=== PATIENT | male | born 1990 | race Caucasian/White ===

== ENCOUNTER 2020-07-16 23:26 | Emergency (ER) | payer BC ==
[~2020-07-16] VITALS: Ht 182.9 cm; Wt 85.0 kg
--- NOTE | 2020-07-16 23:41 | NUR ---
placed on monitor sury has complaints of non specific cp x 3 days, constant and hurts worse with swallowing or breathing, unable to replicate
--- NOTE | 2020-07-16 23:45 | NUR ---
reports drinking a lot of coffee drank 3 eight 0z coffee tessa
[2020-07-16] MEDS ORDERED: aspirin 81mg tab.chew PO ONE (23:50)
[2020-07-16] MEDS ORDERED: CETI10CA19 PO (23:59)
[2020-07-17 00:01] LABS: BASOPHILS # (AUTO) 0.1 X10'3 (0-0.2); BASOPHILS % (AUTO) 0.7 % (0-1); EOSINOPHILS # (AUTO) 0.1 X10'3 (0-0.9); EOSINOPHILS % (AUTO) 0.9 % (0-6); HEMOGLOBIN 16.4 g/dl (14.0-17.9); LYMPHOCYTES % (AUTO) 16.4 % (21-51); MEAN CORPUSCULAR HEMOGLOBIN 31.5 PG (27.0-31.0); MEAN CORPUSCULAR HGB CONC 34.2 g/dL (33.0-36.5); MEAN CORPUSCULAR VOLUME 92.1 FL (78-98); MEAN PLATELET VOLUME 7.4 FL (7.4-10.4); MONOCYTES # (AUTO) 0.9 X10'3 (0-0.9); MONOCYTES % (AUTO) 7.9 % (2-12); NEUTROPHILS # (AUTO) 8.9 X10'3 (1.8-7.7); NEUTROPHILS % (AUTO) 74.1 % (42-75); PLATELET COUNT 354 X10'3 (140-440); RED BLOOD COUNT 5.21 X10'6 (4.70-6.10); RED CELL DISTRIBUTION WIDTH 12.7 % (11.5-14.5)
[2020-07-17 00:31] LABS: D-DIMER 0.36 MG/L FEU (0-0.50)
[2020-07-17 00:35] LABS: ALANINE AMINOTRANSFERASE 27 U/L (12-78); ALBUMIN 4.1 G/DL (3.4-5.0); ALBUMIN/GLOBULIN RATIO 1.3 (1.1-1.5); ALKALINE PHOSPHATASE 88 IU/L (46-116); ANION GAP 8 (8-16); ASPARTATE AMINO TRANSFERASE 17 U/L (10-37); BILIRUBIN,TOTAL 0.8 MG/DL (0.1-1.0); BLOOD UREA NITROGEN 13 MG/DL (7-18); BUN/CREATININE RATIO 12.3 (5.4-32.0); CHLORIDE 102 MMOL/L (99-107); CREATININE 1.06 MG/DL (0.60-1.10); GLUCOSE 101 MG/DL (70-104); POTASSIUM 3.5 MMOL/L (3.5-5.1); SODIUM 139 MMOL/L (135-145); TOTAL CARBON DIOXIDE 28.9 MMOL/L (24-32); TOTAL PROTEIN 7.3 G/DL (6.4-8.2); eGFR 81 ML/MIN
[2020-07-17] MEDS ORDERED: pantoprazole 40 MG vial IV ONE (00:50)
[2020-07-17] MEDS ORDERED: ondansetron/PF 4mg/2ml inj IV ONE (00:50)
[2020-07-17] MEDS ORDERED: normal saline 1000ML IV soln IVB ONE (00:50)
[2020-07-17] MEDS ORDERED: famotidine/PF 10 mg/ml inj IV ONE (00:50)
[2020-07-17] MEDS ORDERED: OMEP20CA15 PO (01:21)
[2020-07-17 02:06] VITALS: BP 108/77
== END 2020-07-17 02:07 | disposition home or self-care (01) ==
LOC: ER 23:27
DX: R07.9 Chest pain, unspecified (principal); Z79.899 Other long term (current) drug therapy
CPT/HCPCS: 36415; 71045; 80053; 84484; 85025; 85379; 93005; 96361; 96374; 96375; 99285; C9113; J2405; J3490; J7030